=== PATIENT | female | born 1950 | race Caucasian/White ===

== ENCOUNTER → 2017-05-02 | Emergency (ER) | payer OTHER ==
[~2017-05-02] VITALS: Ht 160 cm; Wt 90.7 kg
[~2017-05-02] MED LIST: ATARAX25 MG PO; CORTIZONE-10 PL28 GM TP; COZAAR25 MG; INDAPAMIDE1.25 MG; INDERAL LA120 MG; INDERAL LA80 MG; LEVSIN/SL0.125 MG PO; ORPH100T PO; PHENERGAN25 MG PO; SEPTRA DS TABLE1 TAB PO; SYNTHROID50 MCG; TRAM1TAB98 PO; ZANTAC300 MG PO; ZITHROMAX TRI-500 MG PO
== END | disposition home or self-care (01) ==
LOC: ER 09:28
DX: J11.1 Influenza due to unidentified influenza virus with other respiratory manifestations (principal); B34.9 Viral infection, unspecified

== ENCOUNTER 2017-09-22 18:32 | Emergency (ER) | payer OTHER ==
[~2017-09-22] VITALS: Ht 160 cm; Wt 90.7 kg
== END 2017-09-22 21:51 | disposition home or self-care (01) ==
LOC: ER 18:32
DX: L03.116 Cellulitis of left lower limb (principal)

== ENCOUNTER 2017-10-02 12:08 | Emergency (ER) | payer OTHER ==
[~2017-10-02] VITALS: Ht 160 cm; Wt 90.7 kg
== END 2017-10-02 13:07 | disposition home or self-care (01) ==
LOC: ER 12:08
DX: S40.011A Contusion of right shoulder, initial encounter (principal); W18.39XA Other fall on same level, initial encounter; Y93.89 Activity, other specified; Y92.098 Other place in other non-institutional residence as the place of occurrence of the external cause; Y99.8 Other external cause status

== ENCOUNTER 2018-04-24 10:47 | Emergency (ER) | payer OTHER ==
[~2018-04-24] VITALS: Ht 160 cm; Wt 90.7 kg
== END 2018-04-24 13:36 ==
LOC: ER 10:47
DX: M54.5 Low back pain (principal)

== ENCOUNTER → 2018-07-08 | Day surgery (SDC) | payer OTHER ==
[~2018-07-08] MED LIST changes: +ALLEGRA ALLERGY60 MG PO; +FISH OIL 1,0001 EAC4 PO; +HYDROXYCHLOROQUINE PO; +SINGULAIR10 MG PO; +VIT PO
== END | disposition home or self-care (01) ==
LOC: ADM 07-06 12:30 → CIR.AMB 05:42
DX: N95.0 Postmenopausal bleeding (principal)

== ENCOUNTER 2018-09-14 14:39 | Inpatient (IN) | payer OTHER ==
[~2018-09-14] VITALS: Ht 160 cm; Wt 90.7 kg
[~2018-09-14 14:39] MED LIST changes: +VIT D PO
[2018-09-16] MEDS ORDERED: VITAMIN D2000 UNI1 PO (08:09)
[2018-09-17] MEDS ORDERED: ULTRACET PO (08:54)
[2018-09-17] MEDS ORDERED: COLACE100 MG PO (08:54)
== END 2018-09-17 10:32 | disposition home or self-care (01) | DRG 743 ==
LOC: OB/GYN 09-16 06:45 → O/R 09-16 06:45 → SURH 09-16 11:00 → OB/GYN 09-16 14:17
PROVIDERS: ADMIT Obstetrics & Gynecology
PROC: 0UT20ZZ Resection of Bilateral Ovaries, Open Approach (ICD-10-PCS; 2018-09-16)
PROC: 0UT70ZZ Resection of Bilateral Fallopian Tubes, Open Approach (ICD-10-PCS; 2018-09-16)
PROC: 0UT90ZZ Resection of Uterus, Open Approach (ICD-10-PCS; principal; 2018-09-16 11:00)
DX: D25.1 Intramural leiomyoma of uterus (principal); D25.0 Submucous leiomyoma of uterus; N85.02 Endometrial intraepithelial neoplasia [EIN]; N85.01 Benign endometrial hyperplasia; N83.292 Other ovarian cyst, left side; N83.291 Other ovarian cyst, right side